=== PATIENT | female | born 1935 | race American Indian/Alaskan Native ===

== ENCOUNTER 2016-08-19 08:31 | Inpatient (IN) | payer MEDICARE ==
[2016-08-19 08:31] VITALS: BMI 17.6
--- NOTE | 2016-08-19 09:04 | C.PDOC ---
History Of Present Illness 80-year-old female, PMHx includes Dementia, is brought to the emergency department via BLS with complaints of fall. As per family, patient has had multiple falls, but patient is unsure of what happened, and unable to localize pain. family reports pt has been weak, unsure of how she fell. denies "Tripping on anything' Pt is demented at baseline. No fevers reported. All other Hx limited due to dementia. - HPI Time Seen by Provider: 08/19/16 09:00 Chief Complaint (Nursing): Trauma History Per: Family History/Exam Limitations: clinical condition Past Medical History Reviewed: Historical Data, Nursing Documentation, Vital Signs Vital Signs: Last Vital Signs Temp 98.7 F 08/19/16 11:40 Pulse 61 08/19/16 11:40 Resp 18 08/19/16 11:40 BP 168/82 H 08/19/16 11:40 Pulse Ox 100 08/19/16 11:40 - Medical History PMH: CVA, Emphysema, HTN, Hypercholesterolemia, Malignancy (stomach ca), TIA ( About a year ago) Denies: Asthma, Atrial Fibrillation, Bronchitis, Cardia Arrhythmia, CHF, COPD , Dementia, Migraine, Mitral Valve Prolapse, Multiple Sclerosis, Parkinson's Disease, Peripheral Edema, Pneumonia, Pulmonary Embolism, Chronic Kidney Disease , Seizures, Sleep Apnea Surgical History: Denies: Pacemaker Family History: States: Unknown Family Hx - Social History Hx Tobacco Use: Yes Hx Alcohol Use: No Hx Substance Use: No - Immunization History Hx Tetanus Toxoid Vaccination: No Hx Influenza Vaccination: Yes Hx Pneumococcal Vaccination: No Review Of Systems Review Of Systems: ROS cannot be obtained secondary to pt's inabilty to answer questions. Constitutional: Negative for: Fever Physical Exam - Physical Exam Appears: Non-toxic, No Acute Distress, Other (Cachectic) Skin: Warm, Dry Head: Atraumatic, Normacephalic Eye(s): bilateral: Normal Inspection, PERRL Nose: Normal Cardiovascular: Rhythm Regular Respiratory: Normal Breath Sounds, No Accessory Muscle Use Extremity: Normal ROM Neurological/Psych: Other (oriented to self. ) ED Course And Treatment - Laboratory Results Result Diagrams: 08/19/16 09:35 08/19/16 09:35 Medical Decision Making Medical Decision Making: ?syncope vs multiple falls at home - r/o intracranial, metabolic, infectious etiology - nsr [address] t wave changes 1200: cxr neg as read by me. hip ct neg. pt with weakness, multiple falls, concern for syncope at home. discussed with dr barrera. accepts for admission. pt unsafe d/c as pt also has limited resources at home. needs pt eval for gait dysfunction. Disposition - Disposition Disposition: HOSPITALIZED Disposition Time: 12:12 Condition: STABLE Instructions: Weakness (ED) - Clinical Impression Clinical Impression: Syncope, Multiple falls, Weakness, Failure to thrive, UTI (urinary tract infection) - Scribe Statement The provider has reviewed the documentation as recorded by the Scribe Cristina Cartagena All medical record entries made by the Scribe were at my direction and personally dictated by me. I have reviewed the chart and agree that the record accurately reflects my personal performance of the history, physical exam, medical decision making, and the department course for this patient. I have also personally directed, reviewed, and agree with the discharge instructions and disposition. Decision To Admit - Pt Status Changed To: Hospital Disposition Of: Inpatient - Admit Certification Admit to Inpatient:: After my assessment, the patient will require hospitalization for at least two midnights. This is because of the severity of symptoms shown, intensity of services needed, and/or the medical risk in this patient being treated as an outpatient. - InPatient: Physician Admission Certification: I certify that this patient requires 2 or more midnights of care for the following reason:: pt with multiple falls, concern for possible cardiac syncope, failure to thrive. - . Bed Request Type: Telemetry Admitting Physician: Kiya Vazquez Patient Diagnosis: Syncope, Multiple falls, Weakness, Failure to thrive, UTI (urinary tract infection)
[2016-08-19 09:46] LABS: BASO % 0.5 % (0.0-2.0); EOS % 0.1 % (0.0-4.0); HEMATOCRIT 36.9 % (34.0-47.0); LYMPH # 0.7 K/uL (1.0-4.3); LYMPH % 11.7 % (20.0-40.0); MEAN CELL VOLUME 90.5 fL (81.0-99.0); MEAN CORPUSCULAR HEMOGLOBIN 29.3 pg (27.0-31.0); MEAN CORPUSCULAR HGB CONC 32.4 g/dL (33.0-37.0); MEAN PLATELET VOLUME 8.8 fL (7.2-11.7); MONO # 0.4 K/uL (0.0-0.8); MONO % 6.8 % (0.0-10.0); RED CELL DISTRIBUTION WIDTH 14.3 % (11.5-14.5); WHITE BLOOD COUNT 5.7 K/uL (4.8-10.8)
[2016-08-19 09:52] LABS: POTASSIUM 4.6 mmol/L (3.6-5.2)
[2016-08-19 09:54] LABS: BILIRUBIN,TOTAL 0.7 mg/dL (0.2-1.3); CALCIUM 9.1 mg/dl (8.6-10.4); TOTAL PROTEIN 8.2 g/dL (6.3-8.3)
[2016-08-19 10:06] LABS: TROPONIN I 0.024 ng/mL (0.00-0.120)
--- NOTE | 2016-08-19 10:16 | CT ---
PROCEDURE: CT HEAD WITHOUT CONTRAST. HISTORY: fall COMPARISON: 04/30/2014 TECHNIQUE: Axial computed tomography images were obtained through the head/brain without intravenous contrast. Radiation dose: Total exam DLP = 759.73 mGy-cm. FINDINGS: HEMORRHAGE: No intracranial hemorrhage. BRAIN: No mass effect or edema. Left frontal encephalomalacia. Right frontal encephalomalacia. Old left cerebellar hemispheric infarct. No evidence of acute infarct. Moderate diffuse atrophy consistent with patient age. Moderate periventricular chronic microvascular white matter ischemic change. VENTRICLES: Unremarkable. No hydrocephalus. CALVARIUM: Unremarkable. PARANASAL SINUSES: Unremarkable as visualized. No significant inflammatory changes. MASTOID AIR CELLS: Unremarkable as visualized. No inflammatory changes. OTHER FINDINGS: None. IMPRESSION: Probable old bilateral frontal infarct and old left cerebellar hemispheric infarct. Age related atrophy and periventricular chronic white matter ischemic change. No intracranial hemorrhage. No additional abnormality.
[2016-08-19 11:02] LABS: RBC URINE 31 /hpf (0-3); URINE BACTERIA RARE (<OCC); URINE BILIRUBIN NEGATIVE (NEGATIVE); URINE BLOOD NEGATIVE (NEGATIVE); URINE COLOR Amber (YELLOW); URINE GLUCOSE (UA) NORMAL (Normal); URINE KETONE TRACE mg/dL (NEGATIVE); URINE LEUKOCYTE ESTERASE 3+ Leu/uL (Negative); URINE PROTEIN NEGATIVE (NEGATIVE); URINE UROBILINOGEN NORMAL mg/dL (0.2-1.0); WBC CLUMPS MANY /hpf; WBC URINE 276 /hpf (0-5)
--- NOTE | 2016-08-19 12:06 | CT ---
PROCEDURE: CT left hip HISTORY: fall COMPARISON: Not available TECHNIQUE: 2.5 mm contiguous axial sections were acquired through the left hip. Sagittal and coronal images were reformatted from the axial scan. FINDINGS: There is no evidence fracture. No lytic or blastic osseous lesion is seen. The left superior and inferior pubic rami appear intact. The visualize left iliac bone and sacrum are unremarkable. 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 There are no articular erosions. There is no soft tissue hematoma identified. Incidentally noted are calcified uterine fibroids. IMPRESSION: No evidence of left hip fracture. Mild osteoarthritis.
--- NOTE | 2016-08-19 14:38 | CP.PCM.HP ---
History of Present Illness - History of Present Illness History of Present Illness: Admitted this patient through the ER because of a history of a falll hitting her left hip and left shoulder. Patient hed been very unsteady on her feet , and she and her daughter claims she did not faint nor felt dizzy or woozy.Pain at the hip and shoulder still present. Cat scan of the head is negative. Cat scan of the hip is negative. Present on Admission - Present on Admission Any Indicators Present on Admission: No Review of Systems - Review of Systems Systems not reviewed;Unavailable: Altered Mental Status - Constitutional Constitutional: Fatigue - Reproductive: Female Reproductive:Female: Menopausal - Menstruation Menstruation: Menopausal - Musculoskeletal Musculoskeletal: Abnormal Gait, Muscle Weakness - Neurological Neurological: Weakness Past Patient History - Infectious Disease Hx of Infectious Diseases: None - Tetanus Immunizations Tetanus Immunization: Up to Date - Past Medical History & Family History Past Medical History?: Yes - Past Social History Smoking Status: Heavy Smoker > 10 Cigarettes Daily Chewing Tobacco Use: No Cigar Use: No Alcohol: > 2 Drinks/Day Drugs: Denies Home Situation {Lives}: Alone - CARDIAC Hx Atrial Fibrillation: No Hx Cardia Arrhythmia: No Hx Congestive Heart Failure: No Hx Hypercholesterolemia: No Hx Hypertension: Yes Hx Mitral Valve Prolapse: No Hx Pacemaker: No Hx Peripheral Edema: No - PULMONARY Hx Asthma: No Hx Bronchitis: No Hx Chronic Obstructive Pulmonary Disease (COPD): No Hx Emphysema: Yes Hx Pneumonia: No Hx Pulmonary Embolism: No Hx Sleep Apnea: No - NEUROLOGICAL Hx Neurological Disorder: Yes Hx Dementia: Yes (Patient starteng to be dimented) Hx Migraine: No Hx Multiple Sclerosis: No Hx Parkinson's Disease: No Hx Seizures: No Hx Transient Ischemic Attacks (TIA): Yes (About a year ago) Other/Comment: history of cerebral hge about 3 years ago - HEENT Hx HEENT Problems: No Hx Difficulty Chewing: Yes - RENAL Hx Chronic Kidney Disease: No - ENDOCRINE/METABOLIC Hx Endocrine Disorders: No - HEMATOLOGICAL/ONCOLOGICAL Hx Blood Disorders: No - INTEGUMENTARY Hx Dermatological Problems: No - MUSCULOSKELETAL/RHEUMATOLOGICAL Hx Musculoskeletal Disorders: Yes Hx Falls: Yes Hx Unsteady Gait: Yes - GASTROINTESTINAL Hx Gastrointestinal Disorders: Yes Hx Bowel Surgery: Yes (Partial gastrectomy for CA of the stomach) HX Swallowing Problems: Yes (can not swallow at this time) Other/Comment: hx of colon ca. - GENITOURINARY/GYNECOLOGICAL Hx Genitourinary Disorders: No - PSYCHIATRIC Hx Substance Use: No - SURGICAL HISTORY Hx Surgeries: Yes Other/Comment: Patient had partial gastrectomy for Ca of the stomach years ago. - ANESTHESIA Hx Anesthesia: Yes Hx Anesthesia Reactions: No Hx Malignant Hyperthermia: No Meds Allergies/Adverse Reactions: Allergies Allergy/AdvReac Type Severity Reaction Status Date / Time No Known Allergies Allergy Verified 07/13/16 04:41 Physical Exam - Constitutional Appears: No Acute Distress Additional comments: Parient is very unkempt. - Head Exam Head Exam: ATRAUMATIC, NORMAL INSPECTION, NORMOCEPHALIC - Eye Exam Pupil Exam: NORMAL ACCOMODATION, PERRL - ENT Exam ENT Exam: Mucous Membranes Moist - Neck Exam Neck exam: Positive for: Full Rom - Respiratory Exam Respiratory Exam: Clear to Auscultation Bilateral, NORMAL BREATHING PATTERN - Cardiovascular Exam Cardiovascular Exam: REGULAR RHYTHM, +S1, +S2 - GI/Abdominal Exam GI & Abdominal Exam: Normal Bowel Sounds, Soft - Rectal Exam Rectal Exam: Deferred - Extremities Exam Extremities exam: Positive for: full ROM, normal inspection - Back Exam Back exam: FULL ROM, NORMAL INSPECTION - Neurological Exam Neurological exam: Altered Results - Vital Signs Recent Vital Signs: Last Vital Signs Temp 98.7 F 08/19/16 11:40 Pulse 70 08/19/16 14:16 Resp 18 08/19/16 14:16 BP 168/82 H 08/19/16 11:40 Pulse Ox 100 08/19/16 14:16 - Labs Result Diagrams: 08/19/16 09:35 08/19/16 09:35 Assessment & Plan (1) UTI (urinary tract infection) Status: Chronic Priority: Low (2) Multiple falls Status: Chronic Priority: Medium (3) Weakness Status: Chronic Priority: Medium - Assessment and Plan (Free Text) Assessment: Assessment: Hx of multiple falls bacause of difficulty of ambulation for a few years now. History of hypertension. History of old CVA. Weakness. Plan: Plan: Continue IV antibiotics for UTI Referral for subacute placement in AM
--- NOTE | 2016-08-19 15:10 | RAD ---
PROCEDURE: CHEST RADIOGRAPH, 1 VIEW HISTORY: chest pain COMPARISON: 07/13/2016 FINDINGS: LUNGS: Clear. PLEURA: No pneumothorax or pleural fluid seen. CARDIOVASCULAR: Normal. OSSEOUS STRUCTURES: No significant abnormalities. VISUALIZED UPPER ABDOMEN: Normal. OTHER FINDINGS: None. IMPRESSION: No active disease.
--- NOTE | 2016-08-19 15:13 | RAD ---
PROCEDURE: Radiographs of the pelvis. HISTORY: fall COMPARISON: None. FINDINGS: Examination limited due to oblique positioning. Patient unable to cooperate for supine positioning. BONES: Pelvic Bones: Unremarkable. Hips: Curvilinear sclerotic band about the left femoral neck. Cannot rule out nondisplaced fracture. Additional radiographic evaluation is advised. No fracture seen elsewhere. JOINTS: Sacroiliac Joints: Unremarkable. Pubic Symphysis: Unremarkable. OTHER FINDINGS: Calcified uterine fibroids. IMPRESSION: Limited evaluation. Cannot rule out left femoral neck nondisplaced fracture. Recommend additional radiographic evaluation.
[2016-08-20 07:54] LABS: CHOLESTEROL 160 mg/dL (0-199)
[2016-08-20] MEDS: Enoxaparin 40 mg Syringe SC SCH (09:41)
[2016-08-20] MEDS: cefTRIAXone IV 1 gm in Dextros 50 ML IVPB SCH ×2 (11:00→22:25)
--- NOTE | 2016-08-20 11:05 | CP.PCM.PN ---
Subjective - Date & Time of Evaluation Date of Evaluation: 08/20/16 Time of Evaluation: 11:00 - Subjective Subjective: Patient in bed. Ask if she has any pains anywhere and she says no. Still not oriented. Eating very little. CBC and chemistries are acceptable. Urine culture is growing gram negative rods and gram positive cocci. Aawiting sensitivities. Cta scan of th left hip is negative Xray of the pelvis is negative. Objective - Vital Signs/Intake and Output Vital Signs (last 24 hours): Temp Pulse Resp BP Pulse Ox 98.0 F 66 18 105/67 98 08/20/16 07:02 08/20/16 07:30 08/20/16 07:02 08/20/16 07:02 08/20/16 07:02 Intake and Output: 08/20/16 08/20/16 06:59 18:59 Intake Total 0 Balance 0 - Medications Medications: Current Medications Amlodipine Besylate (Norvasc) 10 mg PO DAILY [facility] Last Admin: 08/20/16 09:39 Dose: 10 mg Aspirin (Aspirin) 325 mg PO DAILY [facility] Last Admin: 08/20/16 09:39 Dose: 325 mg Enoxaparin Sodium (Lovenox) 40 mg SC DAILY [facility] Last Admin: 08/20/16 09:41 Dose: 40 mg Ceftriaxone Sodium (Rocephin Iv 1 Gm Duplex) 50 mls @ 50 mls/30 min IVPB Q12H [facility] Losartan Potassium (Cozaar) 50 mg PO DAILY [facility] Last Admin: 08/20/16 09:41 Dose: 50 mg Pneumococcal Polyvalent Vaccine (Pneumovax 23 Vaccine) 0.5 ml IM .ONCE ONE Stop: 08/21/16 10:01 - Labs Labs: PT 11.5 SECONDS (9.7-12.2) 08/19/16 09:35 INR 1.0 08/19/16 09:35 APTT 28 SECONDS (21-34) 08/19/16 09:35 - Constitutional Appears: No Acute Distress, Unkempt, Confused - Head Exam Head Exam: ATRAUMATIC, NORMAL INSPECTION, NORMOCEPHALIC - Eye Exam Pupil Exam: PERRL - ENT Exam ENT Exam: Mucous Membranes Moist - Neck Exam Neck Exam: Full ROM - Respiratory Exam Respiratory Exam: NORMAL BREATHING PATTERN - GI/Abdominal Exam GI & Abdominal Exam: Soft, Normal Bowel Sounds - Rectal Exam Rectal Exam: Deferred - Extremities Exam Extremities Exam: Full ROM - Back Exam Back Exam: Full ROM, NORMAL INSPECTION - Neurological Exam Neurological Exam: Altered - Skin Skin Exam: Dry Additional comments: Skin is very dirty. Assessment and Plan (1) UTI (urinary tract infection) Status: Acute (2) Multiple falls Status: Chronic (3) Weakness Status: Chronic (4) High blood pressure Status: Chronic - Assessment and Plan (Free Text) Assessment: Assessment: Old CVA Multiple falls. Dimentia. UTI Weakness
--- NOTE | 2016-08-20 12:40 | CP.PCM.CON ---
<Gideon Skaggs Y - Last Filed: 08/20/16 20:50> History of Present Illness - History of Present Illness History of Present Illness: 80 y/o female patient seen and evaluated at bedside after request for podiatry consult. Patient was resting comfortably in end and in NAD. Patient denies any pedal pain at this time. Patient denies any symptoms of N/V/F/SOB/Chest pain. Past Patient History - Infectious Disease Hx of Infectious Diseases: None - Tetanus Immunizations Tetanus Immunization: Up to Date - Past Medical History & Family History Past Medical History?: Yes - Past Social History Smoking Status: Never Smoked - CARDIAC Hx Hypercholesterolemia: Yes Hx Hypertension: Yes - PULMONARY Hx Asthma: No Hx Bronchitis: No Hx Chronic Obstructive Pulmonary Disease (COPD): No Hx Emphysema: Yes Hx Pneumonia: No Hx Pulmonary Embolism: No Hx Sleep Apnea: No - NEUROLOGICAL HX Cerebrovascular Accident: Yes - HEENT Hx HEENT Problems: No Hx Difficulty Chewing: Yes - RENAL Hx Chronic Kidney Disease: No - ENDOCRINE/METABOLIC Hx Endocrine Disorders: No - HEMATOLOGICAL/ONCOLOGICAL Hx Blood Disorders: No - INTEGUMENTARY Hx Dermatological Problems: No - MUSCULOSKELETAL/RHEUMATOLOGICAL Hx Musculoskeletal Disorders: Yes Hx Falls: Yes Hx Unsteady Gait: Yes - GASTROINTESTINAL Hx Gastrointestinal Disorders: Yes Hx Bowel Surgery: Yes (Partial gastrectomy for CA of the stomach) HX Swallowing Problems: Yes (can not swallow at this time) Other/Comment: hx of colon ca. - GENITOURINARY/GYNECOLOGICAL Hx Genitourinary Disorders: No - PSYCHIATRIC Hx Substance Use: No - SURGICAL HISTORY Hx Surgeries: Yes Other/Comment: Patient had partial gastrectomy for Ca of the stomach years ago. - ANESTHESIA Hx Anesthesia: Yes Hx Anesthesia Reactions: No Hx Malignant Hyperthermia: No Meds Allergies/Adverse Reactions: Allergies Allergy/AdvReac Type Severity Reaction Status Date / Time No Known Allergies Allergy Verified 07/13/16 04:41 - Medications Medications: Current Medications Amlodipine Besylate (Norvasc) 10 mg PO DAILY [facility] Last Admin: 08/20/16 09:39 Dose: 10 mg Aspirin (Aspirin) 325 mg PO DAILY [facility] Last Admin: 08/20/16 09:39 Dose: 325 mg Enoxaparin Sodium (Lovenox) 40 mg SC DAILY [facility] Last Admin: 08/20/16 09:41 Dose: 40 mg Ceftriaxone Sodium (Rocephin Iv 1 Gm Duplex) 50 mls @ 50 mls/30 min IVPB Q12H [facility] Losartan Potassium (Cozaar) 50 mg PO DAILY [facility] Last Admin: 08/20/16 09:41 Dose: 50 mg Pneumococcal Polyvalent Vaccine (Pneumovax 23 Vaccine) 0.5 ml IM .ONCE ONE Stop: 08/21/16 10:01 Physical Exam - Constitutional Appears: Well, Non-toxic, No Acute Distress - Extremities Exam Additional comments: Vascular: DP and PT palpable, CFT is less than 3 seconds Derm: No open wounds, no cyst, elongated, thickened and deformed toe nails ( x10 ) Ortho: Limited to exam Neuro: protective sensation intact - Neurological Exam Neurological exam: Alert, CN II-XII Intact Results - Vital Signs Recent Vital Signs: Last Vital Signs Temp 98.0 F 08/20/16 07:02 Pulse 68 08/20/16 12:14 Resp 18 08/20/16 07:02 BP 105/67 08/20/16 07:02 Pulse Ox 98 08/20/16 12:14 - Labs Result Diagrams: 08/19/16 09:35 08/19/16 09:35 Labs: Laboratory Results - last 24 hr 08/20/16 07:35 Triglycerides 59 Cholesterol 160 LDL Cholesterol Direct 60 HDL Cholesterol 56 Assessment & Plan - Assessment and Plan (Free Text) Assessment: 80 y/o female patient with bilateral feet obnychomycosis and onychocrypotosis ( x10) Plan: Patient was seen and evaluated at bedside All the questions and concerns were addressed Discussed with attending Dr. Kimball Toe nails were debrided with nail nippers without any complications Advised patient to follow up with podiatry clinic Please re-consult to podiatry if patient has another pedal problem. <Vimal Kimball - Last Filed: 08/21/16 11:16> Meds - Medications Medications: Current Medications Amlodipine Besylate (Norvasc) 10 mg PO DAILY [facility] Last Admin: 08/21/16 09:04 Dose: 10 mg Aspirin (Aspirin) 325 mg PO DAILY [facility] Last Admin: 08/21/16 09:04 Dose: 325 mg Enoxaparin Sodium (Lovenox) 40 mg SC DAILY [facility] Last Admin: 08/21/16 09:04 Dose: 40 mg Ceftriaxone Sodium (Rocephin Iv 1 Gm Duplex) 50 mls @ 50 mls/30 min IVPB Q12H [facility] Last Admin: 08/20/16 22:25 Dose: 50 mls/30 min Losartan Potassium (Cozaar) 50 mg PO DAILY [facility] Last Admin: 08/21/16 09:04 Dose: 50 mg Results - Vital Signs Recent Vital Signs: Last Vital Signs Temp 98.4 F 08/21/16 07:02 Pulse 70 08/21/16 07:02 Resp 18 08/21/16 07:02 BP 134/76 08/21/16 07:02 Pulse Ox 98 08/21/16 07:02 - Labs Result Diagrams: 08/19/16 09:35 08/19/16 09:35 Attending/Attestation - Attestation I have personally seen and examined this patient.: Yes I have fully participated in the care of the patient.: Yes I have reviewed all pertinent clinical information: Yes Notes (Text): 08/21/16 11:16 Pt seen and treatment was rendered. Will f/u as outpatient.
--- NOTE | 2016-08-20 16:28 | CARD ---
APPROVED REPORT EKG Measurement Heart [id number] NE 142P-5 [id number] <Conclusion> Normal sinus rhythm Normal ECG
[2016-08-21] MEDS: Enoxaparin 40 mg Syringe SC SCH (09:04)
[2016-08-21] MEDS ORDERED: Pneumococcal 23-Valent Vaccine IM ONE (10:00)
--- NOTE | 2016-08-21 11:13 | CP.PCM.PN ---
Subjective - Date & Time of Evaluation Date of Evaluation: 08/21/16 Time of Evaluation: 11:20 - Subjective Subjective: Patient is afebrile. Confused. Disoriented as to person but oriented as to place. Eating better. Objective - Vital Signs/Intake and Output Vital Signs (last 24 hours): Temp Pulse Resp BP Pulse Ox 98.4 F 70 18 134/76 98 08/21/16 07:02 08/21/16 07:02 08/21/16 07:02 08/21/16 07:02 08/21/16 07:02 Intake and Output: 08/21/16 08/21/16 06:59 18:59 Intake Total 290 Balance 290 - Medications Medications: Current Medications Amlodipine Besylate (Norvasc) 10 mg PO DAILY [facility] Last Admin: 08/21/16 09:04 Dose: 10 mg Aspirin (Aspirin) 325 mg PO DAILY [facility] Last Admin: 08/21/16 09:04 Dose: 325 mg Enoxaparin Sodium (Lovenox) 40 mg SC DAILY [facility] Last Admin: 08/21/16 09:04 Dose: 40 mg Ceftriaxone Sodium (Rocephin Iv 1 Gm Duplex) 50 mls @ 50 mls/30 min IVPB Q12H [facility] Last Admin: 08/20/16 22:25 Dose: 50 mls/30 min Losartan Potassium (Cozaar) 50 mg PO DAILY [facility] Last Admin: 08/21/16 09:04 Dose: 50 mg - Labs Labs: PT 11.5 SECONDS (9.7-12.2) 08/19/16 09:35 INR 1.0 08/19/16 09:35 APTT 28 SECONDS (21-34) 08/19/16 09:35 - Constitutional Appears: Unkempt - Head Exam Head Exam: ATRAUMATIC, NORMAL INSPECTION, NORMOCEPHALIC - Eye Exam Pupil Exam: NORMAL ACCOMODATION, PERRL - ENT Exam ENT Exam: Mucous Membranes Moist - Neck Exam Neck Exam: Full ROM, Normal Inspection - Respiratory Exam Respiratory Exam: NORMAL BREATHING PATTERN - Cardiovascular Exam Cardiovascular Exam: REGULAR RHYTHM, +S1, +S2 - GI/Abdominal Exam GI & Abdominal Exam: Soft, Normal Bowel Sounds - Rectal Exam Rectal Exam: Deferred - Skin Skin Exam: Dry, Intact Assessment and Plan (1) UTI (urinary tract infection) Status: Acute (2) Multiple falls Status: Chronic (3) Weakness Status: Chronic (4) High blood pressure Status: Chronic - Assessment and Plan (Free Text) Assessment: Assessment: Dimentia Hypertension Old CVA UTI Plan: Plan: Continue IV Rocephin Norvasc Diovan For subacute placement
[2016-08-21] MEDS: cefTRIAXone IV 1 gm in Dextros 50 ML IVPB SCH ×2 (11:22→22:08)
[2016-08-21 15:20] VITALS: RESP 20
[2016-08-21 21:35] LABS: RBC URINE 5 /hpf (0-3); URINE BACTERIA MOD (<OCC); URINE BILIRUBIN NEGATIVE (NEGATIVE); URINE BLOOD 1+ (NEGATIVE); URINE COLOR Amber (YELLOW); URINE GLUCOSE (UA) NORMAL (Normal); URINE KETONE TRACE mg/dL (NEGATIVE); URINE LEUKOCYTE ESTERASE 3+ Leu/uL (Negative); URINE PROTEIN NEGATIVE (NEGATIVE); URINE UROBILINOGEN NORMAL mg/dL (0.2-1.0); WBC CLUMPS FEW /hpf; WBC URINE 36 /hpf (0-5)
[2016-08-22] MEDS: Enoxaparin 40 mg Syringe SC SCH (09:51)
[2016-08-22] MEDS: cefTRIAXone IV 1 gm in Dextros 50 ML IVPB SCH ×2 (10:26→22:10)
--- NOTE | 2016-08-22 11:13 | CP.PCM.PN ---
Subjective - Date & Time of Evaluation Date of Evaluation: 08/22/16 Time of Evaluation: 11:15 - Subjective Subjective: Afebrile.Patient is confused, disoriented as to person., and date. eating slightly better. On 4th day of IV antibiotics. Objective - Vital Signs/Intake and Output Vital Signs (last 24 hours): Temp Pulse Resp BP Pulse Ox 982 F H 55 L 20 135/77 98 08/22/16 09:23 08/22/16 09:23 08/22/16 09:23 08/22/16 09:23 08/22/16 09:23 Intake and Output: 08/22/16 08/22/16 06:59 18:59 Intake Total 530 Balance 530 - Medications Medications: Current Medications Amlodipine Besylate (Norvasc) 10 mg PO DAILY [facility] Last Admin: 08/22/16 09:52 Dose: 10 mg Aspirin (Aspirin) 325 mg PO DAILY [facility] Last Admin: 08/22/16 09:51 Dose: 325 mg Enoxaparin Sodium (Lovenox) 40 mg SC DAILY [facility] Last Admin: 08/22/16 09:51 Dose: 40 mg Ceftriaxone Sodium (Rocephin Iv 1 Gm Duplex) 50 mls @ 50 mls/30 min IVPB Q12H [facility] Last Admin: 08/22/16 10:26 Dose: 50 mls/30 min Losartan Potassium (Cozaar) 50 mg PO DAILY [facility] Last Admin: 08/22/16 09:52 Dose: 50 mg - Labs Labs: PT 11.5 SECONDS (9.7-12.2) 08/19/16 09:35 INR 1.0 08/19/16 09:35 APTT 28 SECONDS (21-34) 08/19/16 09:35 - Constitutional Appears: Unkempt - Head Exam Head Exam: ATRAUMATIC, NORMAL INSPECTION, NORMOCEPHALIC - Eye Exam Pupil Exam: NORMAL ACCOMODATION, PERRL - ENT Exam ENT Exam: Normal External Ear Exam - Neck Exam Neck Exam: Full ROM - Respiratory Exam Respiratory Exam: Clear to Ausculation Bilateral, NORMAL BREATHING PATTERN - Cardiovascular Exam Cardiovascular Exam: +S1, +S2 - GI/Abdominal Exam GI & Abdominal Exam: Soft, Normal Bowel Sounds - Rectal Exam Rectal Exam: Deferred - Extremities Exam Extremities Exam: Normal Inspection - Back Exam Back Exam: NORMAL INSPECTION - Neurological Exam Neurological Exam: Altered - Psychiatric Exam Psychiatric exam: Agitated - Skin Skin Exam: Dry, Intact, Normal Color, Warm Assessment and Plan (1) UTI (urinary tract infection) Status: Acute (2) Multiple falls Status: Chronic (3) Weakness Status: Chronic (4) High blood pressure Status: Chronic (5) Dementia Status: Acute - Assessment and Plan (Free Text) Assessment: Assessment: UTI Multiple falls Hypertension Old CVA Dementia Plan: Plan: Continue IV rocephin For transfer to Subacute in AM.
[2016-08-22 11:55] LABS: BASO % 0.7 % (0.0-2.0); EOS # 0.1 K/uL (0.0-0.7); EOS % 1.6 % (0.0-4.0); HEMATOCRIT 34.3 % (34.0-47.0); LYMPH # 1.3 K/uL (1.0-4.3); LYMPH % 32.1 % (20.0-40.0); MEAN CELL VOLUME 90.1 fL (81.0-99.0); MEAN CORPUSCULAR HEMOGLOBIN 29.3 pg (27.0-31.0); MEAN CORPUSCULAR HGB CONC 32.5 g/dL (33.0-37.0); MONO # 0.4 K/uL (0.0-0.8); MONO % 9.2 % (0.0-10.0); NRBC % 0.1 % (0.0-2.0); RED CELL DISTRIBUTION WIDTH 14.4 % (11.5-14.5)
[2016-08-22 12:14] LABS: ALB/GLOB RATIO 0.9 (1.0-2.1); BILIRUBIN,TOTAL 0.3 mg/dL (0.2-1.3); TOTAL PROTEIN 7.3 g/dL (6.3-8.3)
[2016-08-22 12:15] LABS: CALCIUM 8.5 mg/dl (8.6-10.4)
[2016-08-22 14:35] LABS: BASO % 0.6 % (0.0-2.0); EOS # 0.1 K/uL (0.0-0.7); EOS % 1.5 % (0.0-4.0); HEMATOCRIT 36.1 % (34.0-47.0); LYMPH # 1.1 K/uL (1.0-4.3); LYMPH % 30.5 % (20.0-40.0); MEAN CELL VOLUME 90.4 fL (81.0-99.0); MEAN CORPUSCULAR HEMOGLOBIN 29.3 pg (27.0-31.0); MEAN CORPUSCULAR HGB CONC 32.4 g/dL (33.0-37.0); MEAN PLATELET VOLUME 9.2 fL (7.2-11.7); MONO # 0.3 K/uL (0.0-0.8); MONO % 7.3 % (0.0-10.0); RED CELL DISTRIBUTION WIDTH 14.5 % (11.5-14.5); WHITE BLOOD COUNT 3.7 K/uL (4.8-10.8)
[2016-08-22 14:48] LABS: ALB/GLOB RATIO 0.9 (1.0-2.1); BILIRUBIN,TOTAL 0.2 mg/dL (0.2-1.3); TOTAL PROTEIN 7.3 g/dL (6.3-8.3)
[2016-08-22 14:49] LABS: CALCIUM 8.6 mg/dl (8.6-10.4)
[2016-08-22 23:41] VITALS: O2SAT 98
[2016-08-23 08:41] VITALS: BP 128/78; PULSE 64; TEMP 97.4
[2016-08-23] MEDS: cefTRIAXone IV 1 gm in Dextros 50 ML IVPB SCH (11:14)
--- NOTE | 2016-08-23 12:12 | CP.PCM.DIS ---
Provider - Provider Date of Admission: 08/19/16 12:13 Attending physician: Kiya Vazquez MD Time Spent in preparation of Discharge (in minutes): 60 Diagnosis - Discharge Diagnosis (1) UTI (urinary tract infection) Status: Acute Priority: Low (2) Multiple falls Status: Chronic Priority: Medium (3) Weakness Status: Chronic Priority: Medium (4) High blood pressure Status: Chronic Priority: High (5) Dementia Status: Acute Hospital Course - Lab Results Lab Results: Most Recent Lab Values WBC 3.7 K/uL (4.8-10.8) L 08/22/16 14:21 RBC 3.99 Mil/uL (3.80-5.20) 08/22/16 14:21 Hgb 11.7 g/dL (11.0-16.0) 08/22/16 14:21 Hct 36.1 % (34.0-47.0) 08/22/16 14:21 MCV 90.4 fL (81.0-99.0) 08/22/16 14:21 MCH 29.3 pg (27.0-31.0) 08/22/16 14:21 MCHC 32.4 g/dL (33.0-37.0) L 08/22/16 14:21 RDW 14.5 % (11.5-14.5) 08/22/16 14:21 Plt Count 199 K/uL (130-400) 08/22/16 14:21 MPV 9.2 fL (7.2-11.7) 08/22/16 14:21 Neut % (Auto) 60.1 % (50.0-75.0) 08/22/16 14:21 Lymph % (Auto) 30.5 % (20.0-40.0) 08/22/16 14:21 [place] % (Auto) 7.3 % (0.0-10.0) 08/22/16 14:21 Eos % (Auto) 1.5 % (0.0-4.0) 08/22/16 14:21 Baso % (Auto) 0.6 % (0.0-2.0) 08/22/16 14:21 Neut # 2.2 K/uL (1.8-7.0) 08/22/16 14:21 Lymph # 1.1 K/uL (1.0-4.3) 08/22/16 14:21 [place] # 0.3 K/uL (0.0-0.8) 08/22/16 14:21 Eos # 0.1 K/uL (0.0-0.7) 08/22/16 14:21 Baso # 0.0 K/uL (0.0-0.2) 08/22/16 14:21 PT 11.3 SECONDS (9.7-12.2) 08/22/16 11:49 INR 1.0 08/22/16 11:49 APTT 32 SECONDS (21-34) 08/22/16 11:49 Sodium 142 mmol/L (132-148) 08/22/16 14:21 Potassium 4.0 mmol/L (3.6-5.2) 08/22/16 14:21 Chloride 105 mmol/L (98-107) 08/22/16 14:21 Carbon Dioxide 22 mmol/L (22-30) 08/22/16 14:21 Anion Gap 19 (10-20) 08/22/16 14:21 BUN 34 mg/dL (7-17) H 08/22/16 14:21 Creatinine 1.2 MG/DL (0.7-1.2) 08/22/16 14:21 Est GFR ( Amer) 52 08/22/16 14:21 Est GFR (Non-Af Amer) 43 08/22/16 14:21 Random Glucose 112 mg/dL (65-105) H 08/22/16 14:21 Calcium 8.6 mg/dl (8.6-10.4) 08/22/16 14:21 Total Bilirubin 0.2 mg/dL (0.2-1.3) 08/22/16 14:21 AST 28 U/L (14-36) 08/22/16 14:21 ALT 24 U/L (9-52) 08/22/16 14:21 Alkaline Phosphatase 58 U/L (38-126) 08/22/16 14:21 Total Creatine Kinase 69 U/L (30-135) 08/19/16 09:35 Troponin I 0.0240 ng/mL (0.00-0.120) 08/19/16 09:35 Total Protein 7.3 g/dL (6.3-8.3) 08/22/16 14:21 Albumin 3.5 g/dL (3.5-5.0) 08/22/16 14:21 Globulin 3.8 gm/dL (2.2-3.9) 08/22/16 14:21 Albumin/Globulin Ratio 0.9 (1.0-2.1) L 08/22/16 14:21 Triglycerides 59 mg/dL (0-149) 08/20/16 07:35 Cholesterol 160 mg/dL (0-199) 08/20/16 07:35 LDL Cholesterol Direct 60 mg/dL (0-129) 08/20/16 07:35 HDL Cholesterol 56 mg/dL (30-70) 08/20/16 07:35 Urine Color Steph (YELLOW) 08/21/16 21:10 Urine Clarity Hazy (Clear) 08/21/16 21:10 Urine pH 5.0 (5.0-8.0) 08/21/16 21:10 Ur Specific [place] 1.020 (1.003-1.030) 08/21/16 21:10 Urine Protein Negative mg/dL (NEGATIVE) 08/21/16 21:10 Urine Glucose (UA) Normal mg/dL (Normal) 08/21/16 21:10 Urine Ketones Trace mg/dL (NEGATIVE) 08/21/16 21:10 Urine Blood 1+ (NEGATIVE) H 08/21/16 21:10 Urine Nitrate Negative (NEGATIVE) 08/21/16 21:10 Urine Bilirubin Negative (NEGATIVE) 08/21/16 21:10 Urine Urobilinogen Normal mg/dL (0.2-1.0) 08/21/16 21:10 Ur Leukocyte Esterase 3+ [place]/uL (Negative) H 08/21/16 21:10 Urine WBC (Auto) 36 /hpf (0-5) H 08/21/16 21:10 Urine RBC (Auto) 5 /hpf (0-3) H 08/21/16 21:10 Urine WBC Clumps (Auto) Few /hpf (NONE) H 08/21/16 21:10 Ur Squamous Epith Cells < 1 /hpf (0-5) 08/21/16 21:10 Urine Bacteria Mod (<OCC) H 08/21/16 21:10 - Hospital Course Hospital Course: admitted this 80 years old female from the ER because of multiple falls and she was in pain. A cat scan of the head and the hips were negative. Patient was also disoriented as to person and time. She had a history of CVA in the past, with hypertension and hyperlipidemia. She also was a heavy alcohol intaker and was smoking a lot. Because of UTI the patient was placed on IV Rocephin X 5 days. She will be tranferred to the subacute facilty for PT and continuation of her IV antibiotics. - Date & Time of H&P Date of H&P: 08/23/16 Time of H&P: 11:50 Discharge Exam - Head Exam Head Exam: ATRAUMATIC, NORMAL INSPECTION, NORMOCEPHALIC - Eye Exam Pupil Exam: NORMAL ACCOMODATION, PERRL - Neck Exam Neck exam: Full Rom - Respiratory Exam Respiratory Exam: NORMAL BREATHING PATTERN, UNREMARKABLE - GI/Abdominal Exam GI & Abdominal Exam: Unremarkable - Rectal Exam Rectal Exam: Deferred - Back Exam Back exam: NORMAL INSPECTION - Neurological Exam Neurological exam: Altered - Skin Skin Exam: Intact Discharge Plan - Follow Up Plan Condition: STABLE Disposition: REHAB FACILITY/REHAB UNIT Patient education suggested?: No Instructions: Weakness (ED)
== END 2016-08-23 15:06 | DRG 690 ==
LOC: C.ER 08:31 → C.9E 12:13 → C.6T 18:58 → C.3T 08-22 18:11
PROVIDERS: ADMIT Legal Medicine; ATTEND Legal Medicine
PROC: 0HBRXZZ Excision of Toe Nail, External Approach (ICD-10-PCS; principal; 2016-08-20)
PROC: 0HBRXZZ Excision of Toe Nail, External Approach (ICD-10-PCS; 2016-08-20)
PROC: 0HBRXZZ Excision of Toe Nail, External Approach (ICD-10-PCS; 2016-08-20)
PROC: 0HBRXZZ Excision of Toe Nail, External Approach (ICD-10-PCS; 2016-08-20)
PROC: 0HBRXZZ Excision of Toe Nail, External Approach (ICD-10-PCS; 2016-08-20)
PROC: 0HBRXZZ Excision of Toe Nail, External Approach (ICD-10-PCS; 2016-08-20)
PROC: 0HBRXZZ Excision of Toe Nail, External Approach (ICD-10-PCS; 2016-08-20)
PROC: 0HBRXZZ Excision of Toe Nail, External Approach (ICD-10-PCS; 2016-08-20)
PROC: 0HBRXZZ Excision of Toe Nail, External Approach (ICD-10-PCS; 2016-08-20)
PROC: 0HBRXZZ Excision of Toe Nail, External Approach (ICD-10-PCS; 2016-08-20)
DX: N39.0 Urinary tract infection, site not specified (principal); B95.4 Other streptococcus as the cause of diseases classified elsewhere; B96.20 Unspecified Escherichia coli [E. coli] as the cause of diseases classified elsewhere; R62.7 Adult failure to thrive; R55 Syncope and collapse; I10 Essential (primary) hypertension; B35.1 Tinea unguium; I25.10 Atherosclerotic heart disease of native coronary artery without angina pectoris; J43.9 Emphysema, unspecified; S79.912A Unspecified injury of left hip, initial encounter; S49.92XA Unspecified injury of left shoulder and upper arm, initial encounter; R53.1 Weakness; E78.5 Hyperlipidemia, unspecified; R26.81 Unsteadiness on feet; F03.90 Unspecified dementia, unspecified severity, without behavioral disturbance, psychotic disturbance, mood disturbance, and anxiety; W19.XXXA Unspecified fall, initial encounter; F17.210 Nicotine dependence, cigarettes, uncomplicated; Y92.009 Unspecified place in unspecified non-institutional (private) residence as the place of occurrence of the external cause; Z91.81 History of falling; Z86.73 Personal history of transient ischemic attack (TIA), and cerebral infarction without residual deficits; Z85.028 Personal history of other malignant neoplasm of stomach; Z90.3 Acquired absence of stomach [part of]